=== PATIENT | female | born 1985 | race Caucasian/White ===

== ENCOUNTER 2016-08-05 16:33 | Emergency (ER) | payer OTHER ==
[~2016-08-05] VITALS: Ht 154.9 cm; Wt 99.5 kg
[~2016-08-05 16:33] MED LIST: CETI10CA PO; CIPR500T95 PO; DIVA500T PO; MOT200T1 PO; OMEP20TA86 PO; OXYC-176 PO; PRE10 PO; PRO20 PO
[2016-08-05 16:36] VITALS: BP 127/74; PULSE 82; RESP 15; O2SAT 100
== END 2016-08-05 19:45 | disposition left against medical advice (07) ==
LOC: SED 16:33
DX: Z53.21 Procedure and treatment not carried out due to patient leaving prior to being seen by health care provider (principal)

== ENCOUNTER 2016-09-26 09:53 | Day surgery (SDC) | payer OTHER ==
[2016-09-26] VITALS (11 sets, daily range): BP systolic 106–155; BP diastolic 45–90; PULSE 57–105; RESP 11–28; O2SAT 90–99
[~2016-09-26] VITALS: Ht 154.9 cm; Wt 89.6 kg
[2016-09-26] MEDS: Lactated Ringer's 1,000 ML IV SCH ×4 (05:00→15:00)
[2016-09-26] MEDS: Gentamicin Inj 140 MG in Dextrose 5% 100 ML IV SCH ×2 (06:00→12:27)
[~2016-09-26 09:53] MED LIST changes: +ALBU8.5H2 INHALATION; -CETI10CA PO; -CIPR500T95 PO; +CITA20TA11 PO; +Clindamycin 600 mg/50 mL D5W IV ONE; -DIVA500T PO; +Dexamethasone 4 mg/mL Inj IVPUSH PRN; +EPHEDrine Sulfate 50 mg/mL Inj IVPUSH PRN; +HYDR50TA76 PO; +IBUP800T28 PO; +Labetalol 5 mg/mL 4 mL Inj IV PRN; +Lactated Ringer's 1,000 ML IV SCH; +Lactated Ringer's 500 ML IV PRN; -MOT200T1 PO; +MetoCLOpramide 5 mg/mL 2 mL Inj IVPUSH PRN; -OMEP20TA86 PO; -OXYC-176 PO; +Ondansetron 2 mg/mL 2 mL Inj IVPUSH PRN; -PRE10 PO; -PRO20 PO; +Phenazopyridine 97.5 mg Tablet PO ONE; +Phenylephrine 10,000 mCg/mL Inj IVPUSH PRN; +hydrALAZINE 20 mg/mL Inj IVPUSH PRN
[2016-09-26] MEDS ORDERED: fentaNYL-PF 50 mCg/mL 2 mL Inj ONE ×2 (09:54→17:48)
[2016-09-26] MEDS ORDERED: Ketamine 10 mg/mL 20 mL Inj ONE (09:54)
[2016-09-26] MEDS ORDERED: Propofol 10,000 mCg/mL 20 mL Inj ONE (09:54)
[2016-09-26] MEDS ORDERED: Rocuronium 10 mg/mL 5 mL Inj ONE (09:54)
[2016-09-26] MEDS ORDERED: Ondansetron 2 mg/mL 2 mL Inj ONE (09:54)
[2016-09-26] MEDS ORDERED: HYDROmorphone 1 mg/mL Inj ONE (09:54)
[2016-09-26] MEDS ORDERED: Neostigmine 1 mg/mL 10 mL Inj ONE (09:54)
[2016-09-26] MEDS ORDERED: Lidocaine PF 1% 30 mL Inj ONE (09:54)
[2016-09-26] MEDS ORDERED: Dexamethasone 4 mg/mL Inj ONE (09:54)
[2016-09-26] MEDS ORDERED: Glycopyrrolate 0.2 MG/ML 1mL Inj ONE (09:54)
[2016-09-26] MEDS ORDERED: Phenazopyridine 97.5 mg Tablet ONE (10:31)
[2016-09-26] MEDS ORDERED: Clindamycin 600 mg/50 mL D5W Premix IV ONE ×2 (10:31→12:47)
--- NOTE | 2016-09-26 12:04 | PCM.HPANE ---
Patient Data Date of Service: Sep 26, 2016 Surgeon Admitting Provider: Attending Provider:Power Gerardo MD Primary Care Physician:Valentine Other Provider:Flor Elliott Anesthesia Reason for Visit Uterovaginal Prolapse,Pelvic Pain,Cystocele Ht/WT & BMI Height (Feet): 5 Height (Inches): 1 Weight (Kilograms): 89.6 Body Mass Index 37.00 Allergies Coded Allergies: Sulfa (Sulfonamide Antibiotics) (Verified Allergy, Severe, Anaphylaxis, ) hydrocodone (Verified Allergy, Intermediate, NV, 10/18/15) Penicillins (Verified Allergy, Unknown, 10/18/15) Uncoded Allergies: SULFA (Allergy, Severe, ANAPHYLAXIS/HIVES, ORAL SWELLING, 01/24/09) Past Anesthesia History Anesthesia History: Positive for:: Fam Anesthesia Reaction (mother- extreme anxiety attack, stroke post last surgery), Denies:: Abnormal Airway, Anesthesia Reactions, Difficult Intubation Diabetes History Hx Diabetes?: No MRSA MRSA: No Medications Hypertension Medication: No Home Meds Incl Beta Gris: No Reported Medications Albuterol HFA (Proair HFA)8.5 Gm Hfa.aer.ad2 Puffs INHALATION Q4H PRN For Shortness of Breath #1 INHALER 09/23/16 Ibuprofen 800 Mg Cqvbit830 Mg PO TID PRN For Pain Ref 0 09/23/16 Citalopram 20 Mg Kzydqg79 Mg PO DAILY Ref 0 09/23/16 Hydroxyzine HCl (HydrOXYzine Hcl)50 Mg Uxnlym96 Mg PO Q6H PRN For Anxiety Ref 0 09/23/16 Discontinued Reported Medications Ciprofloxacin (Cipro)500 Mg Llsspi201 Mg PO BID 07/06/09 Ibuprofen-Expunged Drug, Do Not Renew! (Motrin-Expunged Drug, Do Not Renew!)200 Mg Dtb870 Mg PO Q6 PRN 07/06/09 Oxycodone/APAP-Expunged Drug, Do Not Renew! (Percocet 5/325-Expunged Drug, Do Not Renew!)1 Each Tablet1 Tab PO Q4 PRN 07/06/09 Omeprazole-Expunged Drug, Do Not Renew! 20 Mg Tablet.dr20 Mg PO DAILY 06/14/09 FLUoxetine-Expunged Drug, Do Not Renew! 20 Mg Lwvmyrf65 Mg PO DAILY 06/14/09 Divalproex Sod-Expunged Drug, Do Not Renew! 500 Mg Tablet.dr500 Mg PO DAILY 06/14/09 Discontinued Scripts Prednisone (PredniSONE)10 Mg Uajxvx34 Mg PO DAILY 5 Days Ref 0 Prov:DarioBrock galicia 10/18/15 Cetirizine HCl (Zyrtec)10 Mg Dvvogqy10 Mg PO HS #14 CAPSULE Ref 0 Prov:AdalbertoBrock BRADENP 10/18/15 History History of ENT Problems?: No HEENT History: Denies:: Abnormal Airway Cataracts Difficult Intubation Dysphagia Glaucoma Hearing Problem Sinus Problem TMJ Denture Type: None Teeth Condition: Within Normal Limits Hx of Heart Problems?: No Cardiovascular History: Denies:: AICD Abdominal Aortic Aneurism Atrial Fibrillation Congestive Heart Failure Coronary Artery Disease Edema Heart Murmur Hypertension Irregular Heartbeat Pacemaker Peripheral Vascular Rheumatic Fever Hx of Respiratory Problem?: Yes Respiratory History: Positive for:: Asthma COPD (poss early signs ) Use of Inhalers / NEBS Denies:: Oxygen Administration Pneumonia Tuberculosis Use of C-PAP Machine Hx Neurologic Problems?: No Neurological History: Denies:: CVA Dementia Dizziness Headaches Multiple Sclerosis Parkinson's Disease Seizures TIA Hx of GI Problems?: Yes Hx of Problems?: Yes Genitourinary History: Positive for:: Urinary Tract Infection (frequent hx of , not current ) Denies:: Kidney Stones Female Hx: Denies:: Currently Problems with Breasts? Skin History: Denies:: History Skin Disorders? Pressure Ulcers Hx Musculoskeletal Problems?: Yes Musculoskeletal History: Positive for:: Back Injury (chronic back ) Musculoskeletal Trauma (hip pain) Denies:: Fibromyalgia Joint Replacement Myasthenia Gravis Osteoarthritis Systemic Lupus Hx of Psycho/Social Problems?: Yes Psycho Social History: Positive for:: Hx Depression Denies:: Suicide Attempt Hx Surgeries?: Yes (tubal, suburethral sling ) Hx Any Other Health Problems?: Yes Other History: Positive for:: Cancer (cervical dysplasia x 2) Denies:: Thyroid Disease History Blood Transfusions: Positive for:: Accept Blood Products? Denies:: Blood Transfusions Hx Diabetes: No Hx Alcohol Use: YesAlcoholic Drinks Per Day: rare- once in last sevenHx Substance Use: Yes (former meth clean since 2013, marijuana daily) Smoking Status: Current Every Day Smoker Have You Smoked inLast 12 mo: Yes Stop/Bang S-Snoring: Do You Snore Loudly: No T-Tired: feel tired, fatigued: No O-Obsered: Observed not breath: No P-Blood Pressure: treated: No B- Body Mass Index > 35 kg/m2: No A- Age over 50: No N- Neck Large Circumference: No G- Gender Male: No JAVIER Total Score: 0 JAVIER Risk Assessment: Low Risk, <3 Yes Risk Assessment Category Category 1A: Patient has history of documented sleep apnea, and HAS NOT received any narcotic, sedative or anesthesia administration during this stay. Category 1B: Patient has history of documented sleep apnea, and HAS received any narcotic , sedative or anesthesia administration during this stay Category 2: Patient has SUSPECTED Obstructive Sleep Apnea, and HAS received any narcotic , sedative or anesthesia administration during this stay. Category 3: Patient has SUSPECTED Obstructive Sleep Apnea and HAS NOT received narcotic, sedative or anesthesia administration during this stay. Category 4: Outpatient in Procedural Areas with known sleep apnea or who screen positive for High Risk via the STOP/BANG questionnaire. Exam Exam Vital Signs Vital Signs Date Time Temp Pulse Resp B/P Pulse Ox O2 Delivery O2 Flow Rate FiO2 09/26/16 10:29 36.2 57 18 116/60 98 Room Air General Appearance: Alert, Oriented X3, Cooperative, No Acute Distress HEENT/AIRWAY: MP 1 Lungs: Clear to Auscultation, Normal Air Movement Heart: Exam Unremarkable, Regular Rate/Rhythm, No Murmurs/Rubs/Gallops Meds/Labs/Diagnostics Admission Meds Current Medications Phenazopyridine HCl 2 tab 2 tab ONCE ONCE PO Last administered on 09/26/16 11 :01; Start 09/26/16 at 06:00; Stop 09/26/16 at 06:01; Status DC Lactated Ringer's (Lr) 1,000 ml @ 120 mls/hr Q8H20M IV Last administered on 10:26; Start 09/26/16 at 05:00; Stop 09/26/16 at 13:19 Plan Impression Patient chart reviewed, patient interviewed and anesthestic plan with risks, benefits, and alternatives discussed, and informed consent obtained. NPO per Anesth. Guidelines: Yes ASA Physical Status: ASA2 Mod Systemic Disease Anesthetic Plan: GA Bene/Risks/Altern/Consents: Yes HP Complete Prior to Induction: Yes Jj Guajardo MD Sep 26, 2016 12:04
[2016-09-26] MEDS ORDERED: Gentamicin 40 mg/mL 2 mL Inj IRRIGATION ONE (12:52)
[2016-09-26] MEDS ORDERED: Lidocaine 1%-Epi 1:100,000 20 mL Inj INJ ONE (12:52)
[2016-09-26] MEDS ORDERED: Clindamycin 900 mg/50 mL D5W Premix IV ONE (16:47)
[2016-09-26] MEDS ORDERED: Estrogens Conjugated 30 Gm Vaginal Cream VAGINAL ONE (17:11)
[2016-09-26] MEDS ORDERED: Acetaminophen IV 1,000 MG in IV Premix 1 EACH IV ONE (17:40)
[2016-09-26] MEDS ORDERED: Alum-Mag Hydrox-Simeth 30 mL Suspension PO PRN (17:40)
[2016-09-26] MEDS ORDERED: Ondansetron 2 mg/mL 2 mL Inj IVPUSH PRN (17:40)
[2016-09-26] MEDS ORDERED: MetoCLOpramide 5 mg/mL 2 mL Inj IVPUSH PRN (17:40)
[2016-09-26] MEDS: fentaNYL-PF 50 mCg/mL 2 mL Inj IVPUSH PRN ×2 (17:50→18:24)
[2016-09-26] MEDS ORDERED: hydrOXYzine Pamoate 25 mg Capsule PO PRN (17:55)
[2016-09-26] MEDS ORDERED: Albuterol 2.5 mg/3 mL Inhalation Solution NEB PRN (17:55)
[2016-09-26] MEDS: HYDROmorphone 1 mg/mL Inj IVPUSH PRN ×4 (18:06→21:04)
[2016-09-26] MEDS: oxyCODONE-Acetamin 5-325 mg Tablet PO PRN ×2 (18:31→22:48)
--- NOTE | 2016-09-26 19:07 | NUR ---
Post Op Pt arrived from PACU at 1835 on gurmadeline, unable to transfer self, slide board used. Pt shivering, upset and having pain 7/10. Stating she needs her inhaler, breathing shallow and 24 resp/min. BP elevated. Pt on 2L NC 98%, weaned off to RA. Pt has 3 lap sites with steri-strips in place, vaginal packing and willy pad in place with scant sero-sanguineous output. SCD's connected and nicotine patch applied. Pt briefly oriented to room, but upset and not wanting to talk. Pt has call light and bed in low. Report will be given to marriage and family social worker RN.
[2016-09-26] MEDS: Senna-Docusate 8.6-50 mg Tablet PO SCH (20:30)
--- NOTE | 2016-09-26 20:38 | OP ---
[address] [address] OPERATIVE REPORT PATIENT: LEE WELSH : 1985 MR#: [id number] ADMIT: 09/26/2016 JOB ID: [id number] DATE OF SURGERY: 09/26/2016 PREOPERATIVE DIAGNOSIS(ES): A 31-year-old, 3, para 3-0-0-3, with the followin. Pelvic organ prolapse (POP-Q) 1st to 2nd degree uterine prolapse. 2. 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 3. Chronic pelvic pain, worsening for the last eight years. 4. History of tubal ligation with Falope rings, bilateral. 5. Recurrent urinary incontinence after deep venous [place] [address] Richardson. Please see under diagnoses by Dr. Roth. POSTOPERATIVE DIAGNOSIS(ES): 1. Pelvic organ prolapse (POP-Q) 1st to 2nd degree uterine prolapse. 2. 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 3. Chronic pelvic pain, worsening for the last eight years. 4. History of tubal ligation with Falope rings, bilateral. 5. Recurrent urinary incontinence after deep venous thrombosis [place] [address] Richardson. Please see under diagnoses by Dr. Roth. PROCEDURE: Laparoscopic-assisted vaginal hysterectomy with bilateral salpingectomy and removal of Falope rings on both sides. SURGEON: Power Gerardo MD. ASSISTANTS: 1. Dr. Roth. 2. Dr. Orozco. ESTIMATED BLOOD LOSS TOTAL: After my surgical and Dr. Roth's surgical total of 300 cc. ANESTHESIA: General endotracheal. IV FLUIDS: 1300 cc of crystalloid. COMPLICATIONS: None. FINDINGS: 1. Examination under anesthesia revealed no adnexal masses appreciated bilaterally. Average sized anteverted uterus. 2. Laparoscopic findings: Normal fallopian tubes with Falope rings visualized on both sides at 3 cm from the cornual end on both sides. 3. Normal ovaries bilaterally. 4. No endometriosis visualized in the pelvis or over the [employer] organs. No masses. Normal peritoneal surfaces. Normal inferior edge of the liver. PACKS: See Dr. Roth's dictation. DRAINS: Goldberg catheter in place. PROCEDURAL DESCRIPTION: Risks, benefits, alternatives of the procedure discussed with the patient. Informed consent signed. Patient moved to the operating room with IV running. After general anesthesia was found to be adequate, the patient was prepped and draped in a normal sterile fashion, placed in dorsal lithotomy position. Goldberg catheter inserted and then weighted speculum inserted into the patient's vagina. Anterior lip of the cervix grasped with single-tooth tenaculum and that was affixed to an acorn to function as a uterine manipulator for the laparoscopic part of the procedure. Please note that examination under anesthesia with the above findings was done before the patient was prepped. Attention was then turned to the patient's abdomen where 8 cc of 1% lidocaine with epinephrine injected in the infraumbilical fold, and this was followed by infraumbilical incision using a scalpel and using S retractors the subcutaneous fat was retracted and the fascia identified and grabbed with two Kochers and the area between was cut with Ramos scissors, and the fascial edges were tagged with 0-Vicryl suture for future use in the procedure. Then, peritoneum identified, grasped between two hemostats and cut in between with Metzenbaum scissors and peritoneum was entered without difficulty. Then, a long 5 mm trocar and sleeve was introduced into the patient's abdomen with 4 L of CO2 gas insufflation, the pelvic organs were visualized. This was followed by introducing the 2nd right lower quadrant 5 mm port under direct visualization after injecting 4 cc of 1% lidocaine with epinephrine and making a small skin incision and introducing the 5 mm trocar and sleeve. Then, in a similar fashion, the left lower quadrant port was introduced without difficulty. The patient was placed in Trendelenburg position. Blunt grasper was used to retract the bowel and under direct visualization the above findings were noted. There were no abnormal masses. There were no endometriosis spots and the surgery was started with grasping the right fimbriated tubal with a blunt grasper and using the LigaSure 5 mm blunt-tip, the mesosalpinx was coagulated and cut gradually until the entire tube was released. This was followed by coagulating and cutting the round ligament and the tubo-ovarian ligament on the right side as well at the ascending branches of the uterines and the uterines on the right side. At that point, attention was then turned to the left adnexa where the left fallopian tube was grabbed with a blunt grasper and, in a similar fashion using the LigaSure, coagulation and cutting through the mesosalpinx, the entire left fallopian tube was released. Closer to the Falope ring site, there was a weak area of the tube and it got . This part was included in the specimen as a portion of the left fallopian tube, and then dissection continued through the mesosalpinx until the cornual end. Then, the tubo-ovarian ligament was coagulated and cut followed by the left round ligament, followed by ascending branches of the uterine artery and the uterine on the left side, coagulated and cut. Good hemostasis assured. Then, using retraction and LigaSure cutting, the bladder flap was created. All instruments were removed from the patient's abdomen, leaving the cords in place for future use and attention was then turned to the patient's vagina where the acorn was removed and the cervix was grabbed with two single-tooth tenaculums. Weighted speculum was inserted previously and 20 cc of dilute solution 1:1 normal saline to 1% lidocaine with epinephrine was injected circumferentially for hydrodissection. This was followed by Bovie cutting circumferentially to amputate around the cervix circumferentially and using a sponge, blunt dissection was performed digitally. This was followed by grabbing the posterior vaginal vault, posterior vaginal fornix and using scissors the posterior cul-de-sac was entered without difficulty. Weighted speculum inserted. Started with clamping the uterosacrals on both sides, cutting and suture ligating for future use in the procedure. A 2nd bite of the uterosacrals were clamped, cut, and suture ligated, tagged as well. This was followed by clamping, cutting cardinals on both sides and followed by clamping, cutting and suture ligating the vascular pedicles on both sides. This released the specimen without difficulty. Small bleeding was noted at the cuff that was controlled with Bovie coagulation. At that point, Dr. Roth took over for his procedures. Please see his dictation and after Dr. Roth closed the vaginal cuff, I went back to laparoscopy port and inspected the vaginal cuff from the peritoneal side and it was noted to be hemostatic. All instruments removed from the patient's abdomen. The fascial incision at the bellybutton was closed with the previously tagged 0-Vicryl suture in a continuous fashion and skin at the three sites was closed with interrupted sutures of 4-0 Vicryl. Steri-Strips applied. Good hemostasis assured. The patient tolerated the procedure well. Sponge, lap, needle, instrument counts were correct x2. Please see Dr. Roth's dictation for his part of the procedure.
[2016-09-26] MEDS: 0.9% Sodium Chloride 1,000 ML IV SCH (21:04)
--- NOTE | 2016-09-26 22:46 | PCM.ANEP1 ---
Post Anesthesia PACU Phase 1 Assessment Vital Signs Vital Signs Date Time Temp Pulse Resp B/P Pulse Ox O2 Delivery O2 Flow Rate FiO2 09/26/16 20:48 81 20 144/81 97 Room Air 09/26/16 19:12 36.6 74 18 155/90 98 Room Air 09/26/16 18:20 36.6 91 22 121/63 99 Nasal Cannula 3 09/26/16 18:10 89 23 106/45 97 Nasal Cannula 3 09/26/16 18:00 89 23 112/52 95 Nasal Cannula 3 09/26/16 17:50 87 24 113/50 92 Nasal Cannula 4 09/26/16 17:45 82 24 125/65 92 Nasal Cannula 4 09/26/16 17:40 91 28 118/62 92 Nasal Cannula 5 09/26/16 17:35 86 27 131/62 91 Nasal Cannula 5 09/26/16 17:31 36.6 105 11 143/78 90 Room Air Anesthetic Administered: GA Level of Alertness: Awake, talking VALLECILLO's with Equal Strength: Yes Pain: Yes Pain Scale Score: 10 Nausea or Vomiting: No CV Function & Hydration Stable: Yes Airway Device: Oxygen Delivery: Room Air Lungs: Clear to Auscultation, Normal Air Movement PACU Phase 2 Assessment Complications: No Follow up Care: No Patient Instructions Provided: N/A Jj Guajardo MD Sep 26, 2016 22:46
--- NOTE | 2016-09-27 00:10 | PCM.SURGOP ---
Surgical Operative Report Date of Service: Sep 26, 2016 Pre Operative Diagnosis 1. Pelvic pain in female R10.2 (625.9): 2. MARILEE 3 3. Pelvic organ prolapse: a) POPQ stage 2 cystocele, b) POPQ stage 2 rectocele. The posterior wall defect was mainly distal, and c) POPQ stage 1-2 uterine prolapse Post Operative Diagnosis 1. Pelvic pain in female R10.2 (625.9). Minimal petechiae/glomerulations noted on bladder hydrodistention. 2. MARILEE 3 3. Pelvic organ prolapse: a) POPQ stage 2 cystocele, b) POPQ stage 2 rectocele. The posterior wall defect was mainly distal, and c) POPQ stage 2 uterine prolapse with enterocele. Procedure: 1. laparoscopic-assisted vaginal hysterectomy and bilateral salpingectomy ( performed by Dr. Gerardo). Dr. Roth performed the remainder of the procedures: 2. anterior and posterior repair, 3. high uterosacral ligament vaginal vault suspension and enterocele repair 4. cystoscopy and hydrodistention Surgeon and Director Of Physiotherapy Services: Surgeon: Power Gerardo MD for the hysterectomy, and Elia Roth MD for the rest of the procedures Assistants: Elia Roth for the hysterectomy, and Power Gerardo for the rest of the procedures Indication for Procedure Pt was interested in hysterectomy with Dr. Gerardo, considering her MARILEE-3 bx confirmed diagnosis, and hx/o cervical procedures for dysplasia X 2, Coordinated with for pelvic prolapse surgery and evaluation for potential interstitial cystitis. Urodynamics revealed decreased bladder capacity, but no stress incontinence or bladder pain with filling. She is a candidate for a laparoscopic-assisted vaginal hysterectomy and bilateral salpingectomy (which would be performed by Dr. Gerardo), an anterior and posterior repair, high uterosacral ligament vaginal vault suspension, enterocele repair, and cystoscopy and hydrodistention (to rule out interstitial cystitis). Laparoscopy will also determine if there are any other etiologies for pelvic pain. The patient signed the consent form. She agreed with the risks, benefits, and alternatives to surgery. The risks included but not limited to recurrence or persistence of prolapse, recurrence of persistence of incontinence, development of voiding dysfunction, development of urinary urgency, urgency incontinence, frequency, and need for intermittent self-catheterization or prolonged indwelling catheterization, injury to other organs including bladder, bowel, nerves or blood vessels. Need for blood transfusion, need for temporary colostomy or urinary stenting. Development of vaginal scarring, dyspareunia, defecatory dysfunction, recurring pain, hematoma formation, urinary tract infection, cellulitis, necrotizing fascitis, and medical risks including myocardial infarction, stroke or VTE. She also understood the FDA warnings associated with the use of vaginal mesh (dysparunia, vaginal erosion, erosion into bowel/bladder/urethra, requiring further surgery to correct these complications). The patient understood the risks and benefits and consented to surgery. Findings: see dictation Procedure Details SURGICAL TECHNIQUE: The patient was brought to the operating room. She was placed under general anesthesia. She was positioned in the supine position with legs in [place]. She was prepped and draped in the normal fashion for vaginal surgery. She was given a dose of IV clindamycin and gentamicin intraoperatively and received a second dose of clindamycin 4 hr later. She received 200 mg oral pyridium prior to surgery. 1. Laparoscopic-assisted Vaginal Hysterectomy and bilateral salpingectomy: Please refer to the dictation by Dr. Power Gerardo. Dr. Roth assisted Dr. Gerardo with the the Laparoscopic-assisted Vaginal Hysterectomy and bilateral salpingectomy. 2. High uterosacral ligament vaginal vault suspension, cystoscopy and enterocele repair: Mini laparotomy sponges were packed to retract the bowel upwards. A pair of Allis clamps were placed along the intraperitoneal portions of the vagina at the 5 and 7 o'clock positions. Tension along these Allis clamps allowed for identification of the uterosacral ligaments bilaterally. A pair of 0 Vicryl sutures were passed around the uterosacral ligaments of the level of the ischial spine bilaterally, totalling 4. Cystoscopy was performed. Tension was applied along the vault sutures and spillage of pyridium-stained urine was noted briskly effluxing from both ureteric orifices. A small enterocele was noted. Next, one 3-0 Prolene suture was placed transversely through the cul-de-sac peritoneum. This was performed while using a gloved finger in the rectum as to avoid penetrating the underlying rectal mucosa. Tying these sutures obliterated the enterocele. 3. Anterior colporrhaphy: Lidocaine 0.5% with 1/[id number] epinephrine was infiltrated along the anterior vaginal wall mucosa. A midline vertical incision was made through the anterior vaginal wall. The vaginal wall was dissected off the underlying pubocervical and pubovesical fascia. The dissection was extended laterally beyond the ischial pubic rami. It was noted that the pubocervical and pubovesical fascial tissues were sufficient. No paravaginal defects were noted. The cystocele was plicated in 2 layers, the first layer with 2-0 Vicryl suture in interrupted fashion, the second layer with 2-0 Tycron suture in an interrupted fashion. A mild amount of anterior vaginal mucosa was excised. The vault suspension sutures were then passed through the planned apex of the vagina. Two were placed through the anterior apex and the other two, through the posterior apex. The vagina was then reapproximated using 3-0 Vicryl suture in a running-locked fashion. The high uterosacral ligament vaginal vault suspension sutures were tied and this elevated the apex of the vagina high up into the hollow of the sacrum. 4. Posterior colpoperineorrhaphy: An EUA revealed the presence of a POPQ stage 2 rectocele that was present mostly at the distal posterior vagina. Lidocaine 0.5% with 1:200,000 of epinephrine was infiltrated along the perineum and posterior vaginal wall mucosa. A thin wedge of perineum was excised with a scalpel and a midline vertical incision was made through the posterior vaginal wall. The vaginal mucosa was dissected off the underlying rectovaginal tissues. It was noted the fascial tissues were sufficient. The rectocele was plicated in one midline layer using 2-0 Vicryl suture in an interrupted fashion. No excess posterior vaginal mucosa was excised. The vagina was reapproximated with 3-0 vicryl suture in an running- locked fashion. The perineum was reapproximated using 2-0 Vicryl suture in an interrupted fashion. The skin was reapproximated using 3-0 Vicryl suture in a subcuticular fashion. 5. Cystoscopy with hydrodistention. A 70 degree cystoscope was inserted into the urethra. The urethra appeared normal. Next the bladder was examined, which was also normal. Both ureteric orifices were noted and brisk spillage of pyridium-stained urine was noted. Next the bladder was filled with sterile water at a pressure of 80-100 cm H2O under gravity. Periurethral pressure was used to keep water from escaping the bladder. Once flow had halted, a 2 minute waiting period was made to elapse to distend the bladder for 2 minutes. The bladder was then emptied. The fliud volume measured was 675 mL. No terminal bloody effluent was noted. Another 2 minute period of hydrodistension was then repeated. The measured fluid was 700 ml, with no terminal bloody effluent. Cystoscopy was repeated. Minimal to mild petechiae and glomerulations were noted superior to the trigone. A 16F Angel catheter was inserted and connected to straight drainage. There were no complications. The estimated blood loss was 300 ml. The patient was brought to the recovery room in stable condition. All instruments were accounted for. The vagina was packed with Premarin-lubricated packing. A 16F indwelling angel catheter was connected to straight drainage. The patient's hips were periodically deflexed during the case. There were no complications. All sponges and instruments were accounted for. She was taken to the recovery room in stable condition. Complications There were no periprocedural complications identified. Surgical Specimen Removed: Not applicable Specimen sent to Pathology: Not applicable Anesthetic Plan: GA Grafts, Implants: None Output, Estimated Blood Loss: 300 (ml EBL) Blood Administration during redding: No Drains: None Catheters: Urethral 2 Way Angel Post Operative Plan overnight observation in bed as she requires a voiding trial in the am copies to: Latha Orozco MD; Power Gerardo MD; Elia Roth MD, William Andre Z MD Sep 27, 2016 00:10
[2016-09-27] MEDS: HYDROmorphone 1 mg/mL Inj IVPUSH PRN ×3 (00:11→05:57)
[2016-09-27 00:15] VITALS: BP 120/78; PULSE 92; RESP 20; O2SAT 98
[2016-09-27] MEDS: diphenhydrAMINE 25 mg Capsule PO PRN ×2 (00:17→04:11)
--- NOTE | 2016-09-27 00:34 | NUR ---
Arrival to unit/Pain/Anxiety/MD paged Patient arrived to floor at 1835 during shift report. Patient in tears, breathing rapidly and complaining of severe abdominal/back pain. Patient appears to be experiencing severe anxiety in addition to the pain; confirmed history of anxiety with patients mother. 1-2mg IV Dilaudid and 2 tabs percocet are being given for pain. Complains of 8-10/10 pain, and does not decrease much with pain medication. Patient has been in hysterics most of the night. PO Vistaril 50mg given for anxiety but does not seem to have provided initial relief. Patient then started to become nauseous and vomit. Zofran and Reglan have been given. Patient also experienced an episode where a significant amount of blood came out of rectum when sitting on toilet. Patient states that she did not bear down, and that it simply just "came out". paged of this and a stat H/H was ordered and one of the surgeons came down to assess patient as well. Surgeon states that it does not appear to have come from the rectum and that she is not concerned at this time. In addition patient started to present with rash on eyes, and one side of her lip is swollen. It is possible that patient bit lip while experiencing such severe anxiety, and the redness of the eyelids is from crying, and rubbing face. PO Benadryl 25mg was given, patient denies any SOB, or itching. Vitals have been monitored throughout this event. Patient is finally resting slightly more comfortably at 0042. SCIENTIFIC SYSTEMS ANALYST applied and is satting fine on room air. Will continue to monitor, and continue frequent checks.
[2016-09-27 01:01] VITALS: BP 155/67; RESP 18; O2SAT 97
[2016-09-27] MEDS: 0.9% Sodium Chloride 1,000 ML IV SCH ×2 (01:04→04:25)
[2016-09-27] MEDS: oxyCODONE-Acetamin 5-325 mg Tablet PO PRN ×2 (04:07→08:05)
[2016-09-27 04:34] VITALS: BP 134/80; PULSE 54; RESP 16; O2SAT 95
[2016-09-27 05:35] LABS: BASOPHILS % (AUTO) 0.1 % (0-3); EOSINOPHILS % (AUTO) 0.1 % (0-5); MONOCYTES % (AUTO) 9.5 % (4-12); Mean Corpuscular Hemoglobin 30.1 pg (27.0-35.0); Mean Corpuscular Volume 91.7 fL (81-100); NEUTROPHILS % (AUTO) 79.2 % (40-74); Platelet Count 284 bil/L (150-400)
[2016-09-27] MEDS: Senna-Docusate 8.6-50 mg Tablet PO SCH (07:57)
[2016-09-27 08:29] VITALS: BP 134/76; PULSE 68; RESP 17; O2SAT 98
[2016-09-27] MEDS ORDERED: Heparin 5,000 Unit/mL Inj SUBQ SCH (08:30)
--- NOTE | 2016-09-27 08:56 | PCM.DIGYN ---
Surgical Discharge Instruction Dates of Hospitalization Date of Hospital Admission 09/26/2016 Providers Admitting Physician: Primary Care Physician: Valentine Attending Physician: Power Gerardo MD Diet Discharge Diet: No restrictions Activity Discharge Activity-General: No lifting >10 pounds for 4-6 weeks, Other ( Nothing in the vagina for 8 weeks, avoid constipation) Dressing and Incisional Care Dressing Care: Keep dressing clean, dry & intact Hygiene: May shower Follow Up Plan Follow-up appointment: Weeks (2, with . earlier with if discharged with angel catheter.) Call your provider for: Fever, Chills, Shortness of breath, Drainage at incision, Heavy vaginal bleeding, Other (excessive pain not controlled with pain medications.) Power Gerardo MD Sep 27, 2016 08:56
--- NOTE | 2016-09-27 10:13 | DIS ---
[address] [address] DISCHARGE SUMMARY PATIENT: LEE WELSH : 1985 MR#: [id number] ADMIT: 09/26/2016 JOB ID: [id number] DIS: 09/27/2016 REASON FOR ADMISSION: Elective surgery by Dr. Gerardo and Dr. Elia Roth MD DISCHARGE DIAGNOSES: Postoperative day number one, status post: 1. Laparoscopic-assisted vaginal hysterectomy (LAVH). 2. Bilateral salpingectomy. 3. High uterosacral vaginal vault suspension. 4. Anterior repair. 5. Posterior repair. 6. Cystoscopy. 7. Bladder hydrodistention. For further details, please refer to the fully dictated notes. HOSPITAL COURSE: On the day of discharge, patient had no complaints. The pain was controlled with pain medication. The Goldberg catheter was still in place this morning. Vaginal packing removed. No vaginal bleeding. The patient is tolerating p.o. intake. Ins and outs for the last 8 hour shift is 1780 cc in and 2150 cc out. Vital signs are a temperature of 36.9 degrees centigrade. Pulse is 54, respirations are 16, blood pressure is 134/80, pulse ox is 95% on room air. Heart is regular rate and rhythm. Positive S1, S2. Lungs clear to auscultation bilaterally. Abdomen nondistended, appropriate tenderness around laparoscopic incisions, positive bowel sounds. Laparoscopic incisions, clean dry and intact. Lower extremities with no calf tenderness appreciated bilaterally. Vaginal packing removed. No vaginal bleeding. Goldberg catheter still in place. Labs this morning, H and H is 12.0 and 36.6. Platelets are 284. White blood count is 18.1. DISCHARGE PLAN: Patient will be discharged home in stable condition. Of note, evaluated by Dr. Roth. Dr. Roth will give patient instructions for the Goldberg catheter. Follow up with Dr. Gerardo in the office in two weeks for a postoperative check. Follow up with Dr. Roth as instructed by him. The patient instructed to have nothing in the vagina for eight weeks. No heavy lifting more than 10 pounds. Instructed to avoid constipation. Call for fever, chills, severe abdominal pain uncontrolled with medication, heavy vaginal bleeding, or any other abnormal wound discharge or any other concerning symptoms. DISCHARGE MEDICATIONS: The patient will be discharged home on the following medications: 1. Percocet 5/325 one tablet with every 4 hours as needed for severe pain. 2. Ibuprofen 800 mg every 8 hours as needed for moderate pain. 3. Colace 100 mg twice daily to avoid constipation. 4. Zofran ODT as needed. Other medications as prescribed by Dr. Roth includin. [id number]. 2. Nitrofurantoin 100 mg daily for seven days. 3. Nicotine patch 21 mg daily for six weeks. The patient understood the discharge instructions. She will comply with her discharge plan, as well as Dr. Roth's discharge plan.
--- NOTE | 2016-09-27 10:30 | NUR ---
Bladder trial Per orders, bladder trial was initiated at approximately 1030. Pt's bladder was filled with 300cc of sterile water using existing angel. Angel catheter was removed and pt immediately felt the need to empty her bladder. Pt was assisted to BR were she was unable to void. Pt became very agitated and anxious. She was encouraged to calm down and relax, but only became more agitated and painful. Pt was unsuccessful in emptying any urine out of her bladder. MD entered room at this time and was able to reinsert angel catheter. Pt proceeded to void 350ml.
--- NOTE | 2016-09-27 11:29 | PCM.PNSURG ---
Subjective Date of Service: Sep 27, 2016 Date of Service: Sep 27, 2016 Visit Information: Reason for Visit Uterovaginal Prolapse,Pelvic Pain,Cystocele Surgery/Surgery Date Post-Op Day # 1 Subjective: AVSS Vaginal packing removed; some lochia noted failed void trial I reinserted 16F angel catheter Hct stable, not anemic pain control with Percocet, FLexeril and ibuprofen ambulated tolerating diet OR explained Gastrointestinal: Good Appetite Objective Vital Sign- Last 8 Hours Date Time Temp Pulse Resp B/P Pulse Ox O2 Delivery O2 Flow Rate FiO2 09/27/16 08:29 36.8 68 17 134/76 98 Room Air 09/27/16 04:34 36.9 54 16 134/80 95 Room Air Intake and Output- Last 8 Hour 09/27/16 Cumulative From/Thru 07:00 09/23/16 16:44 - 09/27/16 06:36 Intake Total 1780 ml 3733.5 ml Output Total 2150 ml 3150 ml Balance -370 ml 583.5 ml Intake Oral 750 ml 750 ml IV Total 1030 ml 2983.5 ml Output Urine Total 1850 ml 2550 ml Estimated Blood Loss 300 ml 600 ml General: Alert, Oriented X3, Cooperative Lungs: Clear to Auscultation Abdomen: Benign Catheters: Urethral 2 Way Angel (16 F reinsert[address] Roth) Result Diagram: 09/27/16 0511 Assessment & Plan Impression stable POD#1 for discharge Problems: Plan See DR. Roth's MA in 1 wk for a voiding trial. D/C home See Dr. Roth in 2 wk copies to: Power Gerardo MD; Elia Roth MD, William Andre Z MD Sep 27, 2016 11:29
--- NOTE | 2016-09-27 14:04 | NUR ---
Discharge Pt discharged to home with transportation by her mother. Pt IV dc'd intact. New medications, follow up appointments and discharge instructions were reviewed. All questions were answered, pt voiced understanding. Pt's belongings were gathered for transport with pt. Pt was escorted off unit by her mother to her POV.
[2016-09-28] MEDS ORDERED: ONDA4TAB9 PO (11:03)
--- NOTE | 2016-10-02 11:22 | PATH ---
SURGICAL PATHOLOGY Attending Physician:Power Gerardo MD CASE STATUS: Signed Out PATIENT NAME: LEE WELSH PID: [id number] : 1985 DATE COLLECTED:09/26/2016 00:00 SPECIMEN: Uterus +/- tubes/ovaries, except neoplastic, prolapse CLINICAL HISTORY: UTEROVAGINAL PROLAPSE, PELVIC PAIN 1). UTERUS, RIGHT FALLOPIAN TUBE, LEFT FALLOPIAN TUBE FINAL DIAGNOSIS: Uterus with Bilateral Fallopian Tubes (Clinical Uterine Prolapse): Secretory endometrium, negative for atypia. Multiple simple benign paratubal cysts, bilateral. Plastic tubal rings in place bilaterally. Fallopian tubes otherwise unremarkable. ICD10: N81.4 GROSS DESCRIPTION: The specimen is received in formalin, labeled with the patient's name, sublabeled as uterus with right fallopian tube, left fallopian tube separate, and consists of a uterus (91 g, 4.0 cm AP, 9.0 cm SI, 5.8 cm ML) with an attached right fimbriated fallopian tube (length-4.5 cm, diameter-0.5 cm) and a detached left fimbriated fallopian tube (length-5.8 cm, diameter-0.4 cm). The ovaries are absent. The upper uterine body is received longitudinally sliced open. The cervix (2.2 cm AP, 3.8 cm ML) has a transverse os and patent endocervical canal. The endometrium (average thickness-0.2 cm) is bales-pink smooth and flat. The myometrium (thickness-1.9 cm) is foley-bales and unremarkable. The serosa is bales smooth and shiny. Each fallopian tube contains a white plastic tubal ring at the proximal end. The fallopian tubes have bales-purple smooth shiny serosa with multiple paratubal cysts (0.2 cm-1.5 cm) containing clear colorless fluid. The lumens are bales and unremarkable. Section code: (A) anterior cervix; (B) posterior cervix; (C, D) anterior endomyometrium; (E,F) posterior endomyometrium; (G) right fallopian tube, serially sectioned, customer sales representative; (H) right fimbria, bivalved, entirely submitted; (I) left fallopian tube, serially sectioned, customer sales representative; (J) left fimbria, bivalved, entirely submitted. 09/28/16 DANIEL ICD-9 CODES: CPT CODES: 47130 Electronically Signed Out Joseph Farrar MD [facility] Pathology [facility] [address], [place] [address] Technical component performed at [facility], [facility] [address], [place], [address]
== END 2016-09-27 12:50 | disposition home or self-care (01) ==
LOC: SAS 09:53 → OSC 18:51 → SAS 09-27 12:50
PROVIDERS: ATTEND Obstetrics & Gynecology
DX: N81.2 Incomplete uterovaginal prolapse (principal); D06.9 Carcinoma in situ of cervix, unspecified; R10.2 Pelvic and perineal pain; N81.11 Cystocele, midline; N81.6 Rectocele; N39.41 Urge incontinence; R39.14 Feeling of incomplete bladder emptying; J45.909 Unspecified asthma, uncomplicated; M54.5 Low back pain; F32.9 Major depressive disorder, single episode, unspecified; E66.3 Overweight; F17.210 Nicotine dependence, cigarettes, uncomplicated; F12.90 Cannabis use, unspecified, uncomplicated; Z98.51 Tubal ligation status; Z68.37 Body mass index [BMI] 37.0-37.9, adult; Z87.440 Personal history of urinary (tract) infections; G89.18 Other acute postprocedural pain
CPT/HCPCS: 36415; 57265; 57283; 58552; 85014; 85018; 85025; 86850; 96374; J1100; J1170; J1580; J1644; J1885; J2250; J2405; J2710; J2765; J3010; J7030; J7120; Q0177

== ENCOUNTER 2016-09-28 05:58 | Emergency (ER) | payer OTHER ==
[~2016-09-28] VITALS: Ht 154.9 cm; Wt 90.9 kg
[~2016-09-28 05:58] MED LIST changes: -Clindamycin 600 mg/50 mL D5W IV ONE; -Dexamethasone 4 mg/mL Inj IVPUSH PRN; -EPHEDrine Sulfate 50 mg/mL Inj IVPUSH PRN; -Labetalol 5 mg/mL 4 mL Inj IV PRN; -Lactated Ringer's 1,000 ML IV SCH; -Lactated Ringer's 500 ML IV PRN; -MetoCLOpramide 5 mg/mL 2 mL Inj IVPUSH PRN; -Ondansetron 2 mg/mL 2 mL Inj IVPUSH PRN; -Phenazopyridine 97.5 mg Tablet PO ONE; -Phenylephrine 10,000 mCg/mL Inj IVPUSH PRN; -hydrALAZINE 20 mg/mL Inj IVPUSH PRN
[2016-09-28 06:01] VITALS: BP 129/79; PULSE 78; RESP 20; O2SAT 99
--- NOTE | 2016-09-28 06:09 | ED.REPORT ---
HPI-Abd Pain F Under 40 Date of Service Sep 28, 2016 ED Provider: Logan Thompson MD Pt is a 31 year old female with a hx of advanced cervical cancer post-op day 2 from a hysterectomy presenting to the ED complaining of nausea and vomiting onset this morning. Associated symptoms include abdominal pain at the incision site, and constipation. She states that she has been unable to pass a BM since the surgery. She reports that she felt fine when she woke up today, but then after she voided her Goldberg catheter she began feeling nauseated and noticed some bleeding from the catheter. Denies fever, hematemesis, or any other symptoms at this time. She was discharged from the hospital yesterday and was feeling fine at that point. Nursing Notes Stated Complaint: VOMITING, CATHETER ISSUE Chief Complaint: Female Abdominal Pain Nursing Notes Reviewed: Yes Allergies: Coded Allergies: Sulfa (Sulfonamide Antibiotics) (Verified Allergy, Severe, Anaphylaxis, 09/28/16) hydrocodone (Verified Allergy, Intermediate, NV, 09/28/16) Penicillins (Verified Allergy, Unknown, 09/28/16) amoxicillin (Verified Allergy, Unknown, 09/28/16) Uncoded Allergies: SULFA (Allergy, Severe, ANAPHYLAXIS/HIVES, ORAL SWELLING, 01/24/09) Scheduled Citalopram (Citalopram) 20 Mg Tablet 20 MG PO DAILY Scheduled PRN Albuterol HFA (Proair HFA) 8.5 Gm Hfa.aer.ad 2 PUFFS INHALATION Q4H PRN PRN For Shortness of Breath Hydroxyzine HCl (HydrOXYzine Hcl) 50 Mg Tablet 50 MG PO Q6H PRN PRN For Anxiety Ibuprofen (Ibuprofen) 800 Mg Tablet 800 MG PO TID PRN PRN For Pain Ondansetron ODT (Zofran ODT) 4 Mg Tablet 4 MG PO Q4H PRN PRN For Nausea General Time Seen by MD: 06:07 Chief Complaint Abdominal pain, Constipation, Vomiting moderate Hx Obtained From: Patient Arrived By: Walk-in Sudden in Onset?: Yes Onset Occurred: Just prior to arrival Symptom Duration: Since onset Progression since Onset: Constant Location: : Diffuse Quality: Painful Severity: Current: Mild Severity: Maximum: Moderate Recent Healthcare: Recent doctor visit, Recent hospitalization, Previous surgery Similar Sx Previous: No Risk Factors Ectopic Risk Stratification Risk factors reviewed CAD Risk Stratification Risk factors reviewed TAD Risk Stratification Risk factors reviewed Past Medical History Past Medical History Pt reports allergy to sulfa drugs Advanced cervical cancer Past Surgical History mesh sling hysterectomy with bladder reconstruction Reports: Tubal ligation Smoking History Current Every Day Smoker Social History 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 Physical Exam Initial Vital Signs Vital Signs (First) Date Time Temp Pulse Resp B/P Pulse Ox O2 Delivery O2 Flow Rate FiO2 09/28/16 06:01 36.7 78 20 129/79 99 Room Air Initial VS: Reviewed Head / Eyes: Atraumatic, Normocephalic, PERRL ENT: Mucous membranes moist, Conjunctiva normal, No scleral icterus Neck: Supple, Non-tender, Full range of motion Extremities: No swelling Skin: Warm, Dry, No cyanosis Neurologic: Alert, Oriented, Nonfocal Psychiatric: Mood/affect normal, Behavior normal, Normal thought content General/Constitutional: Awake, Alert Behavior: Positive: Anxious Abdomen: Soft, BS normoactive, No distention, No palpable mass Tenderness/Guarding/Rebound: Positive: Tender diffuse Interpretation & Diagnostics Lab Results Interpretation Result Diagram: 09/28/16 0620 09/28/16 0620 Test 09/28/16 06:20 09/28/16 07:24 White Blood Count 11.3th/mm3 (3.8-10.1) Red Blood Count 3.85mil/mm3 (3.90-5.20) Hemoglobin 11.5g/dL (12.0-15.6) Hematocrit 35.8% (35.0-46.0) Mean Corpuscular Volume 93.0fL (81-100) Mean Corpuscular Hemoglobin 29.9pg (27.0-35.0) Mean Corpuscular Hemoglobin Concent 32.1% (32.0-37.0) Red Cell Distribution Width 13.3% (12.3-15.4) Platelet Count 295bil/L (150-400) Neutrophils (%) (Auto) 54.2% (40-74) Lymphocytes (%) (Auto) 33.1% (14-46) Monocytes (%) (Auto) 10.2% (4-12) Eosinophils (%) (Auto) 2.0% (0-5) Basophils (%) (Auto) 0.3% (0-3) Hold Purple Top Tube Received (Received) Hold Blue Top Tube Received (Received) Sodium Level 141mEq/L (134-144) Potassium Level 4.0mEq/L (3.5-5.2) Chloride Level 103mEq/L (97-108) Carbon Dioxide Level 24mmol/L (18-29) Blood Urea Nitrogen 10mg/dL (6-20) Creatinine 0.73mg/dL (0.57-1.00) Estimat Glomerular Filtration Rate 134mL/min (>59) Glucose Level 111mg/dL (60-99) Calcium Level 8.9mg/dL (8.5-10.1) Magnesium Level 2.0mg/dL (1.6-2.6) Total Bilirubin 0.2mg/dL (0.0-1.2) Aspartate Amino Transf (AST/SGOT) 39U/L (0-50) Alanine Aminotransferase (ALT/SGPT) 42U/L (0-32) Alkaline Phosphatase 68U/L (25-150) Total Protein 7.0g/dL (6.4-8.4) Albumin 3.9g/dL (3.4-5.0) Lipase 14U/L (13-60) Hold Red Top Tube Received (Received) Hold Mutual Top Tube Received (Received) Hold Viera Top Tube Received (Received) Hold Urine Received (Received) Re-Eval/Medical Decision Med Decision/Clinical Course Patient began feeling better with antinausea medication on board as well as pain medication. She states that her pain is not completely resolved (09/07 versus previous 10/07). Her labs seem appropriate in the setting of postoperative care. Abdominal and pelvic x-rays show mild air-fluid levels and for this reason a CT with contrast was done to evaluate for small bowel obstruction. However CT was not suggestive for small bowel obstruction. Re-Evaluation/Progress : Time of Eval: 06:27 Patient Status: Condition improved Re-Evaluation/Progress Note: Discussed PMHX and HPI. Counseled Regarding: Diagnosis, Lab results, Need for follow-up, When/why to return to ED Discharge & Departure Primary Impression: Post surgical complication Surgical complication system/body Area: [id number] Encounter type: initial encounter Additional Impression: Ileus, postoperative Disposition: Home Discharge Condition All VS Reviewed: Yes Condition: Stable Additional Instructions: You here in the emergency room today for pain and nausea and vomiting after undergoing surgery 2 days ago. He abdominal and pelvic x-rays that we took showed possible small bowel obstruction and for this reason you were evaluated with CT scan. The CT scan showed constipation as well as decreased bowel function, however this is common in postsurgery patients. An oral prescription for Zofran was provided Continue taking the pain medication you were prescribed initially. We discussed the importance of periodic ambulation in order to stimulate movement of the bowels. Continue milk of magnesia at home. If vomiting recurs or if you are feeling significantly lethargic, short of breath, or you begin experiencing dizziness, fever or chills please return to emergency department at that time. Referrals: [facility] EDSupervising Provider for APC: Logan Thompson MD Attestation Portions of this note were transcribed by Nati Jimenez. I, Dr. Thompson personally performed the history, physical exam and medical decision-making; I reviewed and confirmed the accuracy of the information in the transcribed note. Signed by: Bessy Herrera, 09/28/2016 at 0645. Attending Statment Discussed patient with resident Dr. morejon as above. I evaluated the patient independently and agree with plan as above. In brief 31-year-old female who is 2 days status post hysterectomy and bladder reconstruction complaining of abdominal pain and vomiting. She reports the pain is around her surgical site. She reports she was supposed to be sent home with oral antinausea medications but they forget to give them to her. Patient was given Zofran here and her nausea resolved. Her pain was controlled. X-ray showed small air-fluid levels. Given persistence of pain, CT scan was performed which showed ileus no small bowel obstruction. Her urine was negative. Her labs were stable. Her vital signs are stable. Patient discharged home with diagnosis of ileus with plans to ambulate , limit narcotics as able and return if any new or worsening nausea vomiting fevers chills, pain in any other new or worsening symptoms. copies to: [facility] Logan Thompson MD Sep 28, 2016 06:09 NATI JIMENEZ Sep 28, 2016 06:24 Alexander Lacey DO Sep 28, 2016 07:57
[2016-09-28] MEDS ORDERED: 0.9% Sodium Chloride 1,000 ML IV ONE (06:34)
[2016-09-28] MEDS ORDERED: Ondansetron 2 mg/mL 2 mL Inj IVPUSH ONE (06:35)
[2016-09-28] MEDS ORDERED: Ondansetron 2 mg/mL 2 mL Inj IVPUSH PRN (06:35)
[2016-09-28] MEDS: HYDROmorphone 0.5 mg/0.5 mL iSecure Syringe IVPUSH PRN ×2 (06:58→10:16)
[2016-09-28 07:03] LABS: BASOPHILS % (AUTO) 0.3 % (0-3); MONOCYTES % (AUTO) 10.2 % (4-12); Mean Corpuscular Hemoglobin 29.9 pg (27.0-35.0); NEUTROPHILS % (AUTO) 54.2 % (40-74); Platelet Count 295 bil/L (150-400)
[2016-09-28] MEDS ORDERED: Iohexol 300 mg/mL 30 mL Inj PO ONE (08:30)
--- NOTE | 2016-09-28 09:19 | DRSVH ---
PROCEDURE: X-RAY ACUTE ABDOMINAL SERIES ([id number]) INDICATIONS: abd pain, no bms TECHNIQUE: One view chest and two views of the abdomen were acquired. COMPARISON: [facility], , CHEST 1VW (PORTABLE), 05/12/2014, 19:04. FINDINGS: Surgical changes and devices: None. Chest: Lungs are clear. Heart size is normal. No pleural effusions. No pneumoperitoneum. Abdomen: Bowel gas pattern demonstrates multiple small bowel air-fluid levels predominantly within t he right abdomen. There is gas demonstrated within the transverse and sigmoid colon. No suspicious calcifications. Bones: No suspicious bony lesions. IMPRESSION: 1. Nonspecific bowel gas pattern with multiple small bowel air-fluid levels. The findings may refle ct possible small bowel obstruction but the differential also includes an ileus or gastroenteritis. Dictated by: Bal Tejeda M.D. on 09/28/2016 at 9:10 Approved by: Bal Tejeda M.D. on 09/28/2016 at 9:11
--- NOTE | 2016-09-28 10:31 | DRSVH ---
PROCEDURE: CT ABDOMEN AND PELVIS WITH CONTRAST ([id number]) INDICATIONS: Abdominal pain and vomiting 1 day s/p hysterectomy/bladder TECHNIQUE: After the administration of oral and intravenous contrast, 5 mm thick sections acquired from the diap hragms to the symphysis. 5 mm thick coronal and sagittal reformats were performed. For radiation do se reduction, the following was used: automated exposure control, adjustment of mA and/or kV accordi ng to patient size. COMPARISON: [facility], CT, ABD/PELVIS W/CON (PN), 12/19/2008, 16:54. FINDINGS: Image quality: Excellent. ABDOMEN: Lung bases: There are a few small clustered ground glass nodules bilaterally in the lower lobes. Hea rt size is normal. A small hiatal hernia is present. Solid organs: Liver and spleen are normal in size and enhancement. Gallbladder is incompletely dist ended with mild wall enhancement but no calcified gallstones or pericholecystic fluid. Biliary syste m is non-dilated. Pancreas enhances normally. No adrenal nodules. Kidneys are normal in size and e nhancement, without hydronephrosis. Peritoneum and bowel: There is a small amount of free fluid in the pelvis as well as a few small foc i of free air in the lower abdomen compatible with recent surgery. There is mild fluid distention of the colon with scattered air-fluid levels in the small and large bowel. There is gas within the sig moid colon and rectum. The findings are compatible with a mild ileus without evidence of obstruction . Nodes and vessels: No retroperitoneal or mesenteric adenopathy. Aorta and inferior vena cava are no rmal in caliber. Miscellaneous: No ventral hernias. There are small foci of gas within the anterior abdominal wall c onsistent with recent surgery. PELVIS: Genitourinary: There is a Goldberg catheter within a partially distended urinary bladder. The uterus i s surgically absent. There is a small peripherally enhancing cyst in the right ovary measuring up to 1.7 cm likely representing a corpus luteal cyst. Miscellaneous: No inguinal hernias or adenopathy. Bones: No suspicious bony lesions. No vertebral body compression fractures. IMPRESSION: 1. Findings likely reflecting a mild ileus without evidence of obstruction. 2. Small amount of free fluid and free air in the lower abdomen and pelvis compatible with recent redding rgery. 3. Mild enhancement of the gallbladder wall is nonspecific. No calcified gallstones or pericholecys tic fluid. Recommend correlation with clinical symptoms. 4. Partial distention of the urinary bladder with a Goldberg catheter in place. 5. Small clustered foci of groundglass opacity in the lower lobes suggesting a mild infectious or in flammatory process and possibly aspiration. Dictated by: Bal Tejeda M.D. on 09/28/2016 at 10:18 Approved by: Bal Tejeda M.D. on 09/28/2016 at 10:24
[2016-09-28] MEDS ORDERED: ONDA4TAB9 PO (11:03)
[2016-09-28 11:17] VITALS: BP 155/79; PULSE 99
== END 2016-09-28 11:00 | disposition home or self-care (01) ==
LOC: SED 05:58
DX: N99.89 Other postprocedural complications and disorders of genitourinary system (principal); R10.84 Generalized abdominal pain; F17.200 Nicotine dependence, unspecified, uncomplicated; Z88.0 Allergy status to penicillin; Z88.2 Allergy status to sulfonamides; Z88.5 Allergy status to narcotic agent
CPT/HCPCS: 36415; 74022; 74177; 80053; 81025; 83690; 83735; 85025; 96361; 96374; 96375; 96376; 99285; J1170; J2405; J7030; Q9967